=== PATIENT | male | born 1990 | race Caucasian/White ===

== ENCOUNTER 2021-11-03 14:08 | Inpatient (IN) | payer OTHER ==
[2021-11-03 16:16] VITALS: BMI 30.4
[2021-11-03] MEDS ORDERED: DICYCLOMINE HCL 10 MG CAPSULE PO PRN (19:58)
[2021-11-03] MEDS ORDERED: NALOXONE HCL (KLOXXADO) 8 MG SPRAY NS PRN (19:58)
[2021-11-03] MEDS ORDERED: LOPERAMIDE HCL 2 MG CAPSULE PO PRN (19:58)
[2021-11-03] MEDS ORDERED: diazePAM 5 MG TABLET PO PRN (19:58)
[2021-11-03] MEDS ORDERED: MAG HYDROX/AL HYDROX/SIMETH 30 ML UNIT-DOSE CUP PO PRN (19:58)
[2021-11-03] MEDS ORDERED: MAGNESIUM CITRATE 300 ML BOTTLE PO PRN (19:58)
[2021-11-03] MEDS ORDERED: MAGNESIUM HYDROX 2400MG/30ML ORAL SUSPENSION 30 ML CUP PO PRN (19:58)
[2021-11-03] MEDS ORDERED: METHOCARBAMOL 500 MG TABLET PO PRN (19:58)
[2021-11-03] MEDS ORDERED: IBUPROFEN 400 MG TABLET (FP) PO PRN (19:58)
[2021-11-03] MEDS ORDERED: ACETAMINOPHEN 325 MG TABLET (FP) PO PRN ×2 (19:58)
[2021-11-03] MEDS ORDERED: ONDANSETRON *ODT* 4 MG TABLET SL PRN (19:58)
[2021-11-03] MEDS ORDERED: BENZOCAINE/MENTHOL (CHLORASEPTIC ) LOZENGE MM PRN (19:58)
[2021-11-03] MEDS ORDERED: BISMUTH SUBSALICYLATE 524 MG/30 ML PO PRN (19:58)
[2021-11-03] MEDS ORDERED: methaDONE HCL 10 MG TABLET PO ONE (21:00)
[2021-11-03] MEDS: diazePAM 5 MG TABLET PO SCH ×2 (22:07→22:25)
[2021-11-03] MEDS: THIAMINE HCL 100 MG TABLET (FP) PO SCH (22:24)
[2021-11-03] MEDS: MELATONIN 5 MG TABLETS PO SCH (22:24)
[2021-11-03] MEDS: hydrOXYzine PAMOATE 25 MG CAPSULE (FP) PO SCH (22:25)
[2021-11-03] MEDS: NICOTINE 10 MG CARTRIDGE (INHALER) IH PRN (23:33)
[2021-11-04] MEDS: diazePAM 5 MG TABLET PO SCH ×4 (06:24→22:21)
[2021-11-04] MEDS: hydrOXYzine PAMOATE 25 MG CAPSULE (FP) PO SCH ×5 (06:24→22:24)
[2021-11-04] MEDS ORDERED: methaDONE HCL 10 MG TABLET PO SCH (08:00)
[2021-11-04] MEDS ORDERED: methaDONE HCL 10 MG TABLET ONE (08:41)
[2021-11-04] MEDS ORDERED: methaDONE HCL 40 MG DISPERSABLE TABLET ONE (08:42)
[2021-11-04] MEDS: methaDONE 80 MG, methaDONE 20 MG PO SCH (08:45)
[2021-11-04] MEDS: PRENATAL VITAMINS W/ FOLIC ACID TABLET (FP) PO SCH (10:15)
[2021-11-04] MEDS: NICOTINE 10 MG CARTRIDGE (INHALER) IH PRN (10:18)
[2021-11-04] MEDS: THIAMINE HCL 100 MG TABLET (FP) PO SCH (22:21)
[2021-11-04] MEDS: MELATONIN 5 MG TABLETS PO SCH (22:22)
[2021-11-05] MEDS ORDERED: methaDONE HCL 10 MG TABLET ONE (04:47)
[2021-11-05] MEDS ORDERED: methaDONE HCL 40 MG DISPERSABLE TABLET ONE (04:47)
[2021-11-05] MEDS ORDERED: diazePAM 5 MG TABLET PO SCH (06:00)
[2021-11-05] MEDS: hydrOXYzine PAMOATE 25 MG CAPSULE (FP) PO SCH ×2 (07:08→10:38)
[2021-11-05] MEDS: methaDONE 80 MG, methaDONE 20 MG PO SCH (07:10)
[2021-11-05 07:16] VITALS: TEMP 97.3
[2021-11-05] MEDS: PRENATAL VITAMINS W/ FOLIC ACID TABLET (FP) PO SCH (10:38)
[2021-11-05] MEDS ORDERED: cloNIDine HCL 0.1 MG TABLET PO ONE (11:16)
[2021-11-05 12:40] VITALS: BP 152/99; PULSE 90
[2021-11-05 13:07] LABS: SARS-CoV-2 NAA Not Detected (Not Detected)
[2021-11-05 13:51] LABS: HEMOGLOBIN 12.6 GM/dL (11.7-16.9); MCHC 31.6 g/dl (32.0-35.9); MEAN PLT VOLUME 8.2 fl (7.5-11.1); PLATELET COUNT 397 10^3/uL (134-434); RBC 5.25 M/mm3 (4.00-5.60); RDW 17.8 % (11.9-15.9); WHITE BLOOD COUNT 12.8 K/mm3 (4.0-10.0)
[2021-11-05 14:20] LABS: BILIRUBIN,TOTAL 0.4 mg/dL (0.2-1); TOT PROT 8.6 g/dl (6.4-8.2)
[2021-11-05 14:23] LABS: ALBUMIN 4.5 g/dl (3.4-5.0)
[2021-11-05 14:24] LABS: CALCIUM 9.8 mg/dL (8.5-10.1)
[2021-11-05 14:34] LABS: BLOOD UREA NITROGEN 9.8 mg/dL (7-18); CREATININE 0.8 mg/dL (0.55-1.3)
[2021-11-06] MEDS ORDERED: diazePAM 5 MG TABLET PO SCH (06:00)
[2021-11-07] MEDS ORDERED: diazePAM 5 MG TABLET PO ONE (06:00)
== END 2021-11-05 13:07 | disposition left against medical advice (07) | DRG 770 ==
LOC: YASAS 14:08 → Y3N 21:29
PROVIDERS: ADMIT Allergy & Immunology; ATTEND Allergy & Immunology
PROC: HZ2ZZZZ Detoxification Services for Substance Abuse Treatment (ICD-10-PCS; principal; 2021-11-03)
DX: F11.23 Opioid dependence with withdrawal (principal); F13.230 Sedative, hypnotic or anxiolytic dependence with withdrawal, uncomplicated
CPT/HCPCS: 36415; 80053; 85027; 86780; 87811; 93005; 93010; C9803-CS; U0003; U0005

== ENCOUNTER 2021-11-15 18:52 | Emergency (ER) | payer OTHER ==
[2021-11-15 19:01] VITALS: BP 147/92; PULSE 99; TEMP 98.8; BMI 30.9
[2021-11-15] MEDS ORDERED: chlordiazePOXIDE HCL 25 MG CAPSULE PO ONE (20:14)
[2021-11-15] MEDS ORDERED: chlordiazePOXIDE HCL 25 MG CAPSULE ONE (20:31)
[2021-11-15 20:59] LABS: BASO % 0.5 % (0-2.0); EOS % 0.4 % (0-4.5); HEMATOCRIT 35.2 % (35.4-49); HEMOGLOBIN 11.5 GM/dL (11.7-16.9); LYMPH % 26.6 % (8-40); MCH 24.7 pg (25.7-33.7); MCHC 32.8 g/dl (32.0-35.9); MEAN CELL VOLUME 75.4 fl (80-96); MEAN PLT VOLUME 7.7 fl (7.5-11.1); MONO % 9.5 % (3.8-10.2); PLATELET COUNT 366 10^3/uL (134-434); RBC 4.67 M/mm3 (4.00-5.60); WHITE BLOOD COUNT 10.9 K/mm3 (4.0-10.0)
[2021-11-15 21:42] LABS: CALCIUM 9.6 mg/dL (8.5-10.1)
[2021-11-15 21:44] LABS: BLOOD UREA NITROGEN 9.8 mg/dL (7-18)
[2021-11-15 21:46] LABS: CREATININE 0.8 mg/dL (0.55-1.3)
[2021-11-15 21:48] LABS: BILIRUBIN,TOTAL 0.3 mg/dL (0.2-1); TOT PROT 7.8 g/dl (6.4-8.2)
== END 2021-11-15 22:31 | disposition home or self-care (01) ==
LOC: JER 18:52
DX: F10.230 Alcohol dependence with withdrawal, uncomplicated (principal)
CPT/HCPCS: 36415; 80053; 85025; 99284-25